=== PATIENT | male | born 2000 | race American Indian/Alaskan Native ===

== ENCOUNTER 2024-11-27 22:33 | Emergency (ER) | payer OTHER, SELFPAY ==
[2024-11-27 22:33] VITALS: BP 126/72; PULSE 97; RESP 20; TEMP 37.2; O2SAT 96; BMI 43.0
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
[2024-11-28 01:33] VITALS: BP 122/88; PULSE 75; RESP 16; O2SAT 95
== END 2024-11-28 01:37 | disposition home or self-care (01) ==
PROVIDERS: Emergency Provider Emergency Medicine
DX: Z00.8 Encounter for other general examination (principal); V89.2XXA Person injured in unspecified motor-vehicle accident, traffic, initial encounter
CPT/HCPCS: 99281